=== PATIENT | female | born 1945 | race Caucasian/White ===

== ENCOUNTER → 2020-03-24 | Outpatient (CLI) | payer MEDICARE ==
[2020-03-24 10:58] LABS: BASOPHILS % (AUTO) 0.9 % (0.0-5.0); EOSINOPHILS % (AUTO) 8.1 % (0.0-8.0); HEMATOCRIT 35.4 % (36-48); LYMPHOCYTES % (AUTO) 25.8 % (21.0-51.0); MEAN CORPUSCULAR HGB CONC 32.8 g/dL (32.0-36.0); MEAN CORPUSCULAR VOLUME 97.8 fL (79-99); MONOCYTES % (AUTO) 10.2 % (3.0-13.0); NEUTROPHILS % (AUTO) 54.5 % (40.0-77.0); PLATELET COUNT (AUTO) 274 K/uL (130-400); RED BLOOD CELL COUNT(AUTO) 3.62 MIL/uL (4.00-5.50); RED CELL DISTRIBUTION WIDTH 12.1 % (11.0-15.5); WHITE BLOOD COUNT (AUTO) 6.6 K/uL (4.8-10.8)
[2020-03-24 11:15] LABS: APPEARANCE,URINE Clear (CLEAR); BILIRUBIN,URINE Negative (NEGATIVE); COLOR,URINE Yellow (YELLOW); GLUCOSE, URINE (UA) Negative (NEGATIVE); KETONES,URINE Negative (NEGATIVE); LEUKOCYTE ESTERASE ,URINE Small (NEGATIVE); NITRATE,URINE Negative (NEGATIVE); OCCULT BLOOD,URINE Negative (NEGATIVE); PROTEIN,URINE Negative (NEGATIVE); UROBILINOGEN,URINE 0.2 mg/dL (0.2-1.0)
[2020-03-24 11:23] LABS: ALBUMIN 3.9 g/dL (3.5-5.0); BILIRUBIN,TOTAL 0.3 mg/dL (0.2-1.0); POTASSIUM 4.4 mmol/L (3.5-5.1); THYROID STIMULATING HORMONE 2.39 uIU/mL (0.36-3.74); TOTAL PROTEIN, SERUM 7.5 g/dL (6.0-8.3)
[2020-03-24 11:28] LABS: BACTERIA,URINE Few /HPF (None Seen); RBC,URINE None Seen /HPF (0-1); SQUAMOUS EPITHELIAL CELL,UR 0-2 /HPF (0-2)
== END | disposition home or self-care (01) ==
LOC: LAB 09:40
PROVIDERS: ATTEND Internal Medicine
DX: G56.91 Unspecified mononeuropathy of right upper limb (principal); E78.5 Hyperlipidemia, unspecified; I10 Essential (primary) hypertension; M54.41 Lumbago with sciatica, right side; N39.0 Urinary tract infection, site not specified
CPT/HCPCS: 36415; 80053; 80061; 81001; 84443; 85025; 87088

== ENCOUNTER 2023-11-19 06:07 | Observation (INO) | payer OTHER ==
[2023-11-14 11:36] LABS: BASOPHILS # (AUTO) 0.05 K/uL (0.00-0.20); BASOPHILS % (AUTO) 0.9 % (0.0-5.0); EOSINOPHILS # (AUTO) 0.42 K/uL (0.00-0.70); EOSINOPHILS % (AUTO) 7.9 % (0.0-8.0); HEMATOCRIT 36.4 % (36-48); IMMATURE GRANULOCYTE ABSOLUTE 0.02 K/uL (0-1); LYMPHOCYTES # (AUTO) 1.4 K/uL (1.0-4.8); LYMPHOCYTES % (AUTO) 26.5 % (21.0-51.0); MEAN CORPUSCULAR HEMOGLOBIN 32.5 pg (27.0-33.0); MEAN CORPUSCULAR VOLUME 98.6 fL (79-99); MONOCYTES # (AUTO) 0.6 K/uL (0.1-1.0); MONOCYTES % (AUTO) 11.7 % (3.0-13.0); NEUTROPHILS # (AUTO) 2.8 K/uL (1.8-7.7); NEUTROPHILS % (AUTO) 52.6 % (40.0-77.0); PLATELET COUNT (AUTO) 324 K/uL (130-400); RED BLOOD CELL COUNT(AUTO) 3.69 MIL/uL (4.00-5.50); RED CELL DISTRIBUTION WIDTH 12.3 % (11.0-15.5); WHITE BLOOD COUNT (AUTO) 5.3 K/uL (4.8-10.8)
[2023-11-14 11:42] VITALS: BP 171/71; PULSE 71; RESP 16
[2023-11-14 11:51] LABS: ALBUMIN 4.2 g/dL (3.5-5.0); POTASSIUM 4.2 mmol/L (3.5-5.1)
[2023-11-14 12:16] LABS: APPEARANCE,URINE CLEAR (CLEAR); BILIRUBIN,URINE NEGATIVE (NEGATIVE); COLOR,URINE LIGHT-YELLOW (YELLOW); GLUCOSE, URINE (UA) NEGATIVE (NEGATIVE); KETONES,URINE NEGATIVE (NEGATIVE); LEUKOCYTE ESTERASE ,URINE 75 Leu/uL (NEGATIVE); NITRATE,URINE NEGATIVE (NEGATIVE); OCCULT BLOOD,URINE NEGATIVE (NEGATIVE); PROTEIN,URINE NEGATIVE (NEGATIVE); UROBILINOGEN,URINE 0.2 mg/dL (0.2-1.0)
[2023-11-14 12:22] LABS: ADD UA MICROSCOPIC YES
[2023-11-14 12:23] LABS: INR <= 0.93 (0.85-1.15); PROTHROMBIN TIME 9.9 SEC (9.6-11.6)
[2023-11-14 12:25] LABS: PARTIAL THROMBOPLASTIN TIME 28.5 SEC (26.3-35.5)
[2023-11-14 12:35] LABS: SQUAMOUS EPITHELIAL CELL,UR FEW /HPF (0-2)
[2023-11-19] VITALS (34 sets, daily range): BP systolic 129–165; BP diastolic 51–96; PULSE 48–89; RESP 10–19; O2SAT 96–98
[~2023-11-19] VITALS: Ht 170.2 cm; Wt 82.6 kg
[~2023-11-19 06:07] MED LIST: FERR-82 PO; GLUC100019 PO; LOSA100T59 PO; NAPR220T57 PO; OMEP20CA12 PO; SIMV40TA59 PO; TIMO1DRO9 OU
[2023-11-19] MEDS ORDERED: LIDOCAINE HCL-MPF 1% 5ML AMP IJ ONE (06:51)
[2023-11-19] MEDS ORDERED: ROPIVACAINE 0.5% 5MG/ML 30ML ONE (06:51)
[2023-11-19] MEDS ORDERED: DEXAMETHASONE SOD PHOSPHATE 10MG/ML 1ML VIAL ONE (06:51)
[2023-11-19] MEDS ORDERED: ONDANSETRON 4MG INJ ONE (06:52)
[2023-11-19] MEDS ORDERED: FENTANYL CITRATE PF 50 MCG/1 ML 5ML AMP IV ONE (06:52)
[2023-11-19] MEDS ORDERED: ROCURONIUM BROMIDE 10MG/1ML 5ML VL ONE ×2 (06:52→08:12)
[2023-11-19] MEDS ORDERED: MIDAZOLAM HCL 1 MG/ML 2ML VIAL ONE (06:52)
[2023-11-19] MEDS ORDERED: PROPOFOL 10 MG/ML 20ML VIAL IV ONE (06:52)
[2023-11-19] MEDS ORDERED: GLYCOPYRROLATE 0.2 MG/ML 5 ML VIAL ONE (06:56)
[2023-11-19] MEDS ORDERED: PHENYLEPHRINE HCL 10 MG/ML 1ML VIAL IV ONE (06:56)
[2023-11-19] MEDS ORDERED: NEOSTIGMINE METHYLSULFATE 1MG/ML IV ONE (06:56)
[2023-11-19] MEDS ORDERED: TRANEXAMIC ACID 1000MG/10ML ONE (07:13)
[2023-11-19] MEDS: TRANEXAMIC ACID 1000MG/10ML IV ONE (07:33)
[2023-11-19] MEDS: CLINDAMYCIN IVPB 900MG/50ML 50 ML IV ONE (08:10)
[2023-11-19] MEDS: LACTATED RINGERS 1000ML 1,000 ML IV ONE (08:11)
[2023-11-19] MEDS ORDERED: CEFAZOLIN SODIUM 1 GM VIAL ONE (08:17)
[2023-11-19] MEDS ORDERED: CALCIUM CARB 500MG PO PRN (10:30)
[2023-11-19] MEDS ORDERED: KCL 20 MEQ ERTAB PO PRN (10:30)
[2023-11-19] MEDS ORDERED: FERROUS FUMARATE 324 MG TABLET PO PRN (10:30)
[2023-11-19] MEDS: 0.9%NACL 1000ML 1,000 ML IV SCH (10:30)
[2023-11-19] MEDS ORDERED: POTASSIUM CHLORIDE 10% ELIXIR 20 MEQ/15 ML UDCUP PO PRN (10:30)
[2023-11-19] MEDS ORDERED: POTASSIUM CHLORIDE 20MEQ/100ML 100 ML IV PRN (10:30)
[2023-11-19] MEDS: ONDANSETRON 4MG INJ ONE (11:17)
[2023-11-19] MEDS: MEPERIDINE-PF 25 MG/ML SYG ONE ×2 (11:18→11:25)
[2023-11-19] MEDS: KETOROLAC 15MG/ML VIAL (15MG/ML) ONE (11:19)
[2023-11-19] MEDS: KETOROLAC 15MG/ML VIAL (15MG/ML) IV SCH (11:26)
[2023-11-19] MEDS: HYDROCODONE/ACETAMINOPHEN 5/325 MG TAB PO PRN (12:55)
[2023-11-19] MEDS: GABAPENTIN 100 MG CAPSULE PO SCH (14:00)
[2023-11-19] MEDS: CLINDAMYCIN IVPB 900MG/50ML 50 ML IV SCH (15:16)
[2023-11-19] MEDS: KETOROLAC 15MG/ML VIAL (15MG/ML) IV PRN (15:17)
[2023-11-19] MEDS ORDERED: CEFAZOLIN SODIUM 2 GM VIAL IVPB SCH (15:30)
[2023-11-19] MEDS: DOCUSATE SODIUM 100 MG CAP PO SCH (20:26)
[2023-11-19] MEDS: ONDANSETRON 4MG INJ IVP PRN (20:29)
[2023-11-19] MEDS: GLUCOSAMINE SULFATE 1000 MG PO SCH (20:40)
[2023-11-19] MEDS: SIMVASTATIN 20 MG TABLET PO SCH (20:40)
[2023-11-19] MEDS: TIMOLOL MALEATE 0.5% 5 ML BOTTLE OU SCH (21:00)
[2023-11-20] VITALS (11 sets, daily range): BP systolic 120–150; BP diastolic 42–74; PULSE 69–98; RESP 18–20; O2SAT 93–97
[2023-11-20 04:05] LABS: HEMATOCRIT 27.8 % (36-48); MEAN CORPUSCULAR HEMOGLOBIN 33.3 pg (27.0-33.0); MEAN CORPUSCULAR HGB CONC 34.2 g/dL (32.0-36.0); MEAN CORPUSCULAR VOLUME 97.5 fL (79-99); RED BLOOD CELL COUNT(AUTO) 2.85 MIL/uL (4.00-5.50); RED CELL DISTRIBUTION WIDTH 12.3 % (11.0-15.5); WHITE BLOOD COUNT (AUTO) 9.8 K/uL (4.8-10.8)
[2023-11-20 04:19] LABS: CREATININE 1.1 mg/dL (0.5-1.5); POTASSIUM 4.1 mmol/L (3.5-5.1)
[2023-11-20] MEDS: PANTOPRAZOLE 40 MG TAB DR PO SCH (08:44)
[2023-11-20] MEDS: POLYETHYLENE GLYCOL 3350 17 GM POWD.PACK PO SCH (08:44)
[2023-11-20] MEDS: LOSARTAN 100 MG TABLET PO SCH (08:44)
[2023-11-20] MEDS: ASPIRIN 325MG EC TAB PO SCH (08:44)
[2023-11-20] MEDS ORDERED: NON-FORMULARY MEDICATION 1 EACH (Omeprazole 20 MG) PO SCH (09:00)
[2023-11-20] MEDS: LACTULOSE 20 GM/30 ML UDCUP PO PRN (18:55)
[2023-11-20] MEDS: CYCLOBENZAPRINE HCL 10 MG TABLET PO PRN (23:20)
[2023-11-21 03:55] VITALS: BP 137/65; PULSE 96; RESP 17
[2023-11-21 08:00] VITALS: BP 142/61; PULSE 87; RESP 17
[2023-11-21 08:20] VITALS: O2SAT 90
[2023-11-21] MEDS: FERROUS SULFATE 325 MG TABLET.DR PO SCH (09:03)
[2023-11-21 12:00] VITALS: BP 144/62; PULSE 84; RESP 17
[2023-11-21] MEDS: BISACODYL 10 MG SUPP.RECT RC ONE (12:34)
[2023-11-21 16:00] VITALS: BP 143/59; PULSE 97; RESP 16
[2023-11-21] MEDS ORDERED: ASPI-891 PO (17:15)
[2023-11-21] MEDS ORDERED: HYDR-4060 PO (17:15)
[2023-11-21] MEDS ORDERED: GABA100C PO (17:15)
[2023-11-21] MEDS ORDERED: CYCL-309 PO (17:15)
[2023-11-21] MEDS ORDERED: DOCU-116 PO (17:15)
[2023-11-21 20:00] VITALS: BP 110/20; PULSE 118; RESP 20; O2SAT 97
[2023-11-22] VITALS: BP 131/58; PULSE 96; RESP 19
[2023-11-22] MEDS: TRAMADOL HCL 50 MG TABLET PO PRN (02:12)
[2023-11-22 04:00] VITALS: BP 136/61; PULSE 98; RESP 18
[2023-11-22 08:00] VITALS: BP 116/50; PULSE 87; RESP 16; O2SAT 93
[2023-11-22] MEDS ORDERED: BISACODYL 10 MG SUPP.RECT RC PRN (10:30)
== END 2023-11-22 10:40 | disposition home health service (06) ==
LOC: DAH 06:07 → DAHIP 06:08 → 4DH 15:00
PROVIDERS: ADMIT Student in an Organized Health Care Education/Training Program; ATTEND Student in an Organized Health Care Education/Training Program
DX: M16.11 Unilateral primary osteoarthritis, right hip (principal); G89.18 Other acute postprocedural pain; M77.32 Calcaneal spur, left foot; I10 Essential (primary) hypertension; E78.00 Pure hypercholesterolemia, unspecified; Z98.890 Other specified postprocedural states; Z86.2 Personal history of diseases of the blood and blood-forming organs and certain disorders involving the immune mechanism; Z79.899 Other long term (current) drug therapy
CPT/HCPCS: 82040; 80048 ×2; 85025; 85610; 85730; 87088; 84134; 86140; 81001; 36415 ×2; 93005; 87641; 96376 ×3; 96365; 96366; 96375; 73503; 64447; 27130; 73521; 97161; 97530 ×8; 85027; 97116 ×3; G0378 ×67; A4663; C1776; J7120; J3010; J0690; J3490 ×9; J1100; J2250; J2704; J2405 ×6; J2710; J2175 ×2; J2795; J1885 ×5; J2371; A6223; A4649 ×3; G0168; A6255; A6254; A5120; A4215; A4223; A4222; A4221